=== PATIENT | female | born 1985 | race Caucasian/White ===

== ENCOUNTER 2021-10-27 19:37 | Emergency (ER) | payer BC ==
[~2021-10-27] VITALS: Ht 167.6 cm; Wt 83.9 kg
[2021-10-28] MEDS ORDERED: CEPH500 PO (00:36)
== END 2021-10-28 00:50 | disposition home or self-care (01) ==
LOC: ER 19:37
DX: S81.011A Laceration without foreign body, right knee, initial encounter (principal); F17.210 Nicotine dependence, cigarettes, uncomplicated; W26.8XXA Contact with other sharp object(s), not elsewhere classified, initial encounter
CPT/HCPCS: 12002; 73560-RT; 90714; 99283-25